=== PATIENT | female | born 1965 | race Caucasian/White ===

== ENCOUNTER 2020-03-21 12:52 | Outpatient (CLI) | payer OTHER, SELFPAY | END 2020-03-21 12:53 | disposition home or self-care (01) | LOC: ANHSURGERY 12:56 | PROVIDERS: Anesthesiology; PCP Physician Assistant; Visit Provider Surgery Plastic and Reconstructive Surgery | DX: Z41.1 Encounter for cosmetic surgery (principal) | CPT/HCPCS: 36415; 85014; 85018 ==

== ENCOUNTER 2020-03-30 01:00 | Outpatient (CLI) | payer OTHER, SELFPAY ==
[2020-03-30 18:05] LABS: SARS-CoV-2 RNA PCR Negative
== END 2020-03-30 01:01 | disposition home or self-care (01) ==
LOC: ANHCOVIDDT 01:00
PROVIDERS: PCP Physician Assistant; Visit Provider Surgery Plastic and Reconstructive Surgery
DX: Z01.812 Encounter for preprocedural laboratory examination (principal); Z20.828 Contact with and (suspected) exposure to other viral communicable diseases
CPT/HCPCS: 87635; C9803; U0003

== ENCOUNTER 2020-04-02 00:03 | Day surgery (SDC) | payer OTHER, SELFPAY ==
[2020-03-20 12:22] VITALS: BMI 25.0
--- NOTE | 2020-04-01 09:07 | WPDANESEPPF ---
Anes - Initial Pre Proc Eval Procedure: Operation Date: 04/02/20 07:30 Proposed Procedures p Abdominoplasty - Missael Wilson MD s Liposuction Of Bra Folds, Liposuction Of Flanks - Missael Wilson MD Date/Time: 04/01/20 09:07 Surgeon: Missael Wilson MD Pre Op Diagnosis: Skin Laxity Patient Data Age: 54 Gender: F Height: 1.47 m Weight: 54.43 kg Allergies Allergy/AdvReac Type Severity Reaction Status Date / Time bupropion [From Wellbutrin] Allergy rash Verified 04/02/20 06:53 hydrocodone [From Vicodin] Allergy headache Verified 04/02/20 06:53 atorvastatin [From Lipitor] AdvReac increased Verified 04/02/20 06:53 blood sugar NSAIDS (Non-Steroidal AdvReac Gastrointestinal Verified 04/02/20 06:53 Anti-Inflamma Upset Home Medications Medication Instructions Recorded Confirmed Type atenolol 25 mg tablet 25 mg PO DAILY 11/15/19 04/02/20 History evolocumab 140 mg/mL subcutaneous 140 mg SUB-Q .EVERYOTHERWEEK 11/15/19 04/02/20 History pen injector rosuvastatin 10 mg tablet 10 mg PO EVERY OTHER DAY 11/15/19 04/02/20 History carisoprodol 350 mg tablet 350 mg PO TID PRN #21 tablet 03/19/20 04/02/20 Rx docusate sodium 100 mg capsule 100 mg PO DAILY #14 cap 03/19/20 04/02/20 Rx ondansetron HCl 4 mg tablet 4 mg PO Q8H PRN #28 tablet 03/19/20 03/20/20 Rx oxycodone-acetaminophen 5 mg-325 1 tablet PO Q6H PRN #15 tablet 03/19/20 03/20/20 Rx mg tablet ascorbic acid (vitamin C) [Vitamin 1 g PO BID 03/20/20 04/02/20 History C] aspirin 81 mg PO DAILY 03/20/20 04/02/20 History cholecalciferol (vitamin D3) 125 mcg PO QPM 03/20/20 04/02/20 History [Vitamin D3] cranberry fruit concentrate [Azo 250 mg PO BID 03/20/20 04/02/20 History Cranberry] krill oil 500 mg PO QPM 03/20/20 04/02/20 History modafinil 400 mg PO DAILY 03/20/20 04/02/20 History Patient hx anesthesia problems: none Family hx anesthesia problems: none [facility] Past Medical History Medical History (Updated 04/01/20 @ 09:06 by Gary Morris DO) Coronary artery disease small blockage - no treatment indicated Hyperlipidemia Peripheral vascular disease Surgical History Surgical History (Updated 04/01/20 @ 09:06 by Gary Morris DO) History of arterial bypass of lower extremity Family History Family History Father Heart disease Mother Hypertension Dementia Social History Social History Smoking packs per day: 1 Smoking cigarettes per day: 20.0 Years smoked: 30 Smoking pack-years: 30.00 Smoking status: Former smoker Tobacco type: cigarettes Additional smoking assessment comments: QUIT 2013 Alcohol intake: current Substance use: never Spiritual care concerns: No Anes - Eval Final PreProcedure Day of Procedure 04/01/20 09:07 Patient weight: overweight Heart: regular rate and rhythm Lungs: clear to auscultation and normal air movement Airway: Mallampati scale class II Neurological: alert and oriented Last oral intake: >/= 8 hours ASA classification: III Emergent: no Anesthetic plan: proceed Anesthesia type and monitoring: general ETT and standard monitoring Informed Consent: The patient's anesthetic plan and its attendant risks and benefits were discussed with the patient/family/POA. Questions were solicited and answers provided to the satisfaction of the patient/family/POA.
[2020-04-02] VITALS (18 sets, daily range): BP systolic 126–142; BP diastolic 63–91; PULSE 57–82; RESP 10–18; TEMP 36.2–37.2; O2SAT 92–100
[2020-04-02] MEDS: LACTATED RINGERS 1,000 ML 30 ML IV CONT ×2 (06:45→11:35)
[2020-04-02 07:03] LABS: Urine Cotinine NEGATIVE
--- NOTE | 2020-04-02 07:10 | WPDHPUPDATE1 ---
History and Physical Update Update Date/Time: 04/02/20 07:10 History and Physical has been reviewed, including an updated exam of the patient. There are NO changes in the patient's condition. Risks, benefits, and alternatives have been discussed and questions answered. Patient agrees to proceed with procedure.
[2020-04-02] MEDS: ceFAZolin 2 GM/D5W 50 ML 2 GM/50 ML BAG IVPB (07:30)
--- NOTE | 2020-04-02 11:21 | P.OP_ITS ---
Procedure Note - Detailed Date of procedure: 04/02/20 Pre-op diagnosis: Skin Laxity Post-op diagnosis: same Procedure performed: 1. Suction lipectomy flank / bra roll. 2. Progressive tension abdominoplasty. Description of procedure: She is here today for abdominoplasty and suction lipectomy.. Previously and again today the risks, benefits, alternatives were discussed in extensive detail. I wanted her to be very realistic about the risk s involved as well as expectations. We discussed aftercare and what to monitor for. I was very upfront about the risks of wound breakdown leading to loss of skin, open wounds, and need for additional procedures with permanent abdominal deformity. We discussed DVT/PE risks and management. Made sure answered all of her questions to her satisfaction today and consent was obtained. She was marked in the preoperative holding area with their verification. The patient was taken to the operating room placed supine on the operating table. Anesthesia was provided by anesthesiology. A westbrook catheter was started. She was prepped and draped in a standard sterile fashion circumfirentially by turning side to side.. A surgical time-out was taken. Suction lipectomy of flank and bra roll was completed using S.A.F.E. technique through 11 stab incisions. First a tumescent solution was used to tumesce the area. Once adequate time for hemostasis suction was completed with a 4mm basket cannula. This was to visual end point and rolling pinch. Completed while supine and rotating to lateral decubitus position. Port sites closed with 4-0 Nylon. I placed the patient in a flexed position to verify the upper and lower markings would reach. I then placed her supine. A thorough abdominal examination was completed. Stab incisions were made and used tumescent solution. A 10 blade was used to make the lower incision. I continued dissection down to the level of fascia. Elevated just what was necessary for repair of the diastasis and discontinuous undermining otherwise. I elevated up to level the umbilicus and left the umbilicus intact on a well-vascularized stalk. A 2 mm blunt cannula and Exparel which was mixed 20 cc in 100 cc for a total volume of 120 cc I injected deep to the fascia bilaterally as well as along the incision lines. I plicated the diastasis recti using 0 PDO stratafix barbed suture. This was in 2 separate layers using 2 separate sutures as well. I repaired around the umbilicus leaving plenty of room for well-vascularized stalk of the umbilicus with 2-0 PDS. The patient was flexed and starting from superior to inferior began plication using 2-0 Vicryl to obliterate all space in a standard progressive tension fashion. At the umbilicus I marked out the location of the skin and inset this with 3-0 Monocryl and 4-0 nylon. I continued the remainder of the plication using 2-0 Vicryl until I reached my lower planned scar line. I trimmed any excess skin of the upper flap making sure this was a tension-free closure. I then approximated using a 3 point suture with 2-0 Vicryl followed by 3-0 stratafix ,running subcuticular 4-0 Monocryl, and tissue glue. Fluffs and an abdominal binder were placed. The patient was transferred to the bed in a flexed position. Awoken and taken to the PACU without difficulty. All instrument and sponge counts were correct at the end of the case. Surgeon: Missael Wilson MD Estimated blood loss (mL): 30 Drains: No Packing: No Pathology: none sent Complications: No immediate complications Condition: stable Disposition: PACU Findings: Tissue weight 541.2 grams. Lipoaspirate 1000cc.
--- NOTE | 2020-04-02 11:41 | SUR.OPER ---
Left pedal pulse checked post op per MD request due to past vascular surgeries. Passed on to [facility]EARCH FELLOW to continue to check pulses and report to MD if abnormal or diminished.
--- NOTE | 2020-04-02 11:46 | SUR.PHASEI ---
Patient came into PACU w/ 1000 LTC in bag number 3. Anesthesia took credit for all of bag 2.
[2020-04-02] MEDS: fentaNYL CITRATE INJ (*CRX) 100 MCG/2 ML VIAL 25 MCG IV PUSH ×6 (11:58→13:16)
--- NOTE | 2020-04-02 13:45 | PC.NURSE ---
This patient, Cayla Upton, was received from PACU on 04/02/20 at 1342. Patient/family oriented to unit policies and routines
[2020-04-02] MEDS: LACTATED RINGERS 1,000 ML 125 ML IV CONT (14:03)
[2020-04-02] MEDS: MORPHINE SULFATE (*CRX) 2 MG/ML INJ IV PUSH ×4 (14:05→22:19)
[2020-04-02] MEDS: carisoprodoL (*CRX) 350 MG TABLET PO ×2 (16:04→22:18)
[2020-04-03 04:45] VITALS: BP 125/70; PULSE 71; RESP 16; TEMP 36.9
[2020-04-03] MEDS: MORPHINE SULFATE (*CRX) 2 MG/ML INJ IV PUSH (04:55)
[2020-04-03] MEDS: carisoprodoL (*CRX) 350 MG TABLET PO ×2 (04:55→09:16)
[2020-04-03 07:40] VITALS: BP 94/54; PULSE 104; RESP 16; TEMP 37.2; O2SAT 91
--- NOTE | 2020-04-03 07:42 | WPDANESPN ---
Anes - Prog Note Post-Op Date/Time: 04/03/20 07:42 Cardiovascular status: normal Respiratory status: normal Airway patency: baseline Mental status: baseline Post-Op hydration status: normal Vital Signs: Last Vital Signs Temp 98.5 F 04/03/20 04:45 Pulse 71 04/03/20 04:45 Resp 16 04/03/20 04:45 BP 125/70 04/03/20 04:45 Pulse Ox 100 04/02/20 17:00 Pain Score (VAS): 08/14 I/O: Intake & Output 04/02/20 04/02/20 04/03/20 15:59 23:59 07:59 Intake Total 700 300 800 Output Total 200 300 700 Balance 500 0 100 Post-procedural complaints: none Patient Feedback: Patient satisfied with anesthetic care.
--- NOTE | 2020-04-03 07:49 | WPDPN ---
Progress Note: A&P Assessment and Plan (1) Encounter for cosmetic surgery: Code(s): Z41.1 - Encounter for cosmetic surgery Status: Acute Assessment and Plan: Doing well after abdominoplasty and suction lipectomy. Will discharge home. Follow-up. Today we had a lengthy discussion about the care. What monitor for. Activity limitations. Made sure answered all of her questions. I will see her back. (2) Umbilical hernia: Code(s): K42.9 - Umbilical hernia without obstruction or gangrene Status: Acute (3) Peripheral vascular disease: Code(s): I73.9 - Peripheral vascular disease, unspecified Status: Acute Assessment and Plan: Good color and capillary refill of the feet. Good pulses. (4) History of arterial bypass of lower extremity: Code(s): Z95.828 - Presence of other vascular implants and grafts Status: Acute (5) Coronary artery disease: Code(s): I25.10 - Atherosclerotic heart disease of [place] coronary artery without angina pectoris Status: Acute (6) Hyperlipidemia: Code(s): E78.5 - Hyperlipidemia, unspecified Status: Acute (7) History of tobacco use: Code(s): Z87.891 - Personal history of nicotine dependence Status: Acute (8) Hypersomnolence: Code(s): G47.10 - Hypersomnia, unspecified Status: Acute Review of Systems Review of Systems: All systems reviewed & are unremarkable except as noted in HPI and below Exam Narrative: Exam Narrative: Abdomen is healing well. There is no signs of infection. No hematoma. No seroma. Good color and capillary refill. No calf tenderness. Negative Homans. Her feet have good color and 2+ pulses. Const: General: comfortable, no acute distress, alert and awake; No acute distress Orientation/consciousness: oriented to person HENMT: Head: normal to inspection Ears: external ears normal General nose exam: Normal external nose present Face and sinus: normal facial exam Eyes: General: appearance normal, both eyes and all related structures Periorbital: periorbital findings normal Eyelids: eyelids normal Conjunctivae: conjunctivae normal Neck: Neck: normal visual inspection Chest: Chest palpation & inspection: normal inspection of the chest Resp: Effort & Inspection: normal respiratory effort and able to speak in complete sentences GI: Inspection: normal to inspection Neuro: General: oriented to person Psych: Appearance: grossly normal Mental Status: mental status grossly normal Objective Data Vital Signs Vital Signs: Vital Signs - 24 hr 04/02/20 11:35 04/02/20 11:50 04/02/20 12:05 Temperature 36.3 C L Pulse Rate 66 64 72 Respiratory Rate 14 11 L 10 L Blood Pressure 127/73 129/74 140/73 Pulse Oximetry 100 100 100 04/02/20 12:20 04/02/20 12:35 04/02/20 12:50 Temperature Pulse Rate 82 66 74 Respiratory Rate 12 10 L 12 Blood Pressure 132/85 139/91 H 137/74 Pulse Oximetry 92 95 98 04/02/20 13:05 04/02/20 13:20 04/02/20 13:45 Temperature Pulse Rate 57 L 70 Respiratory Rate 14 12 16 Blood Pressure 138/86 126/75 Pulse Oximetry 100 100 100 04/02/20 13:56 04/02/20 14:00 04/02/20 14:15 Temperature 37.2 C Pulse Rate 72 78 73 Respiratory Rate 16 16 16 Blood Pressure 142/67 H 142/74 H 127/63 Pulse Oximetry 100 100 100 04/02/20 14:30 04/02/20 15:00 04/02/20 16:00 Temperature Pulse Rate 73 78 72 Respiratory Rate 16 16 18 Blood Pressure 129/77 133/70 129/67 Pulse Oximetry 100 100 100 04/02/20 17:00 04/02/20 23:30 04/03/20 04:45 Temperature 37.1 C 36.9 C Pulse Rate 77 78 71 Respiratory Rate 16 16 16 Blood Pressure 126/70 128/71 125/70 Pulse Oximetry 100 Intake/Output Intake/Output: Intake & Output 03/31/20 04/01/20 04/02/20 04/03/20 23:59 23:59 23:59 23:59 Intake Total 1000 800 Output Total 500 700 Balance 500 100 Meds/Results Medications: Active Medications Generic Name D
--- NOTE | 2020-04-03 07:52 | PM.DS ---
DS: Admitting Diagnosis Admitting Diagnosis Admitting Diagnosis: Skin Laxity DS: Discharge Diagnosis Discharge Diagnosis (1) Encounter for cosmetic surgery: Code(s): Z41.1 - Encounter for cosmetic surgery Status: Acute Assessment and Plan: Doing very well after abdominoplasty and suction lipectomy. (2) Peripheral vascular disease: Code(s): I73.9 - Peripheral vascular disease, unspecified Status: Acute (3) History of arterial bypass of lower extremity: Code(s): Z95.828 - Presence of other vascular implants and grafts Status: Acute Assessment and Plan: No evidence of compromise. Good color and capillary refill the feet. Strong pulses. (4) Coronary artery disease: Code(s): I25.10 - Atherosclerotic heart disease of [place] coronary artery without angina pectoris Status: Acute (5) Hyperlipidemia: Code(s): E78.5 - Hyperlipidemia, unspecified Status: Acute (6) Umbilical hernia: Code(s): K42.9 - Umbilical hernia without obstruction or gangrene Status: Acute Assessment and Plan: CT scan shows evidence of umbilical hernia. Intraoperatively she had a bulge of the umbilicus. The hernia was not opened. (7) History of tobacco use: Code(s): Z87.891 - Personal history of nicotine dependence Status: Acute Assessment and Plan: She understands the critical importance of no nicotine use. DS: Summary Time Spent with Patient Time attestation: Total time spent providing and/or coordinating discharge services:20 Exam Narrative: Exam Narrative: Abdomen is healing well. There is no signs of infection. No hematoma. No seroma. Good color and capillary refill. No calf tenderness. Negative Homans. Her feet have good color and 2+ pulses. Const: General: comfortable, no acute distress, alert and awake; No acute distress Orientation/consciousness: oriented to person HENMT: Head: normal to inspection Ears: external ears normal General nose exam: Normal external nose present Face and sinus: normal facial exam Eyes: General: appearance normal, both eyes and all related structures Periorbital: periorbital findings normal Eyelids: eyelids normal Conjunctivae: conjunctivae normal Neck: Neck: normal visual inspection Chest: Chest palpation & inspection: normal inspection of the chest Resp: Effort & Inspection: normal respiratory effort and able to speak in complete sentences GI: Inspection: normal to inspection Neuro: General: oriented to person Psych: Appearance: grossly normal Mental Status: mental status grossly normal Discharge Plan Discharge Patient Disposition: Home, Self-Care Discharge Instructions: POST OPERATIVE DISCHARGE INSTRUCTIONS FOR Abdominoplasty / liposuction JC WILSON M.D. [facility] [address] [place] [address] [address] for 24 hours after anesthesia and while you are taking pain medication. Take all prescribed medication as directed Diet as tolerated. No lifting or activity that raises blood pressure for 48 hours. Regular walking / ambulation. No showering until directed to. Once you shower do not take pain medication before showering as the combination of medication and heat may cause you to feel dizzy or pass out. No pools or tubs for 2 weeks. Call with any questions or concerns. No lifting more than 20 pounds for 6 weeks or straining. Slowly stand up straight as tolerated over the week. Dressing Care: Change daily. Wear binder 23 hours per day. May shower. If you have any questions or concerns, please call the office . If it is after hours you will be directed to the director clinical operations exchange. Shortness of breath, chest pain, or other medical emergency dial 911 / proceed to the Emergency Room. Stand Alone Forms: General Discharge Instructions Follow-up/Referrals: Caroline Wilson
[2020-04-03 09:15] VITALS: PULSE 104
[2020-04-03] MEDS: DOCUSATE SODIUM 100 MG CAPSULE PO (09:15)
[2020-04-03] MEDS: atenoloL 25 MG TABLET PO (09:15)
[2020-04-03] MEDS: ENOXAPARIN 40 MG/0.4 ML SYRINGE SUB-Q (09:15)
[2020-04-03] MEDS: ROSUVASTATIN 10 MG TABLET PO (09:16)
[2020-04-03] MEDS: oxyCODONE/ACETAMINOPHEN (*CRX) 5-325 MG TABLET 1 TABLET PO (09:17)
[2020-04-03] MEDS: ACETAMINOPHEN 325 MG TABLET (11:45)
--- NOTE | 2020-04-03 16:45 | PC.NURSE ---
Abdominal binder changed and puncture wound under lt breast dressed with a folded 4x4 d/t drainage of serosanguineous-like fluid. Instructed pt to replace dressing tonight if saturated through and call MD tomorrow if still finding saturated dressings. Pt states understanding.
== END 2020-04-03 17:00 | disposition home or self-care (01) ==
LOC: ANHSURGERY 05:54 → ANH2MED 11:35 → ANHOB2 13:52
PROVIDERS: PCP Physician Assistant; Visit Provider Surgery Plastic and Reconstructive Surgery
PROC: (CPT 15830; principal; 2020-04-02 07:30)
PROC: (CPT 15877; 2020-04-02 07:30)
DX: Z41.1 Encounter for cosmetic surgery (principal); L57.4 Cutis laxa senilis; K42.9 Umbilical hernia without obstruction or gangrene; I25.10 Atherosclerotic heart disease of native coronary artery without angina pectoris; E78.5 Hyperlipidemia, unspecified; I73.9 Peripheral vascular disease, unspecified; Z79.899 Other long term (current) drug therapy; Z87.891 Personal history of nicotine dependence; Z95.828 Presence of other vascular implants and grafts
CPT/HCPCS: 15830; 15847; 15877; 80307; 99199; A9270; C9290; J0171; J0330; J0690; J1100; J1650; J2250; J2270; J2405; J2704; J3010; J7120